=== PATIENT | male | born 1980 | race African-American/Black ===

== ENCOUNTER 2024-06-06 10:38 | Emergency (ER) | payer OTHER ==
[2024-06-06 10:51] VITALS: BP 131/82; PULSE 81; RESP 20; TEMP 98.4; BMI 26.6
[2024-06-06] MEDS ORDERED: ACETAMINOPHEN INJECTION 100 ML ONE (12:53)
[2024-06-06] MEDS: SODIUM CHLORIDE 1,000 ML IV STA (12:55)
[2024-06-06] MEDS: METOCLOPRAMIDE HCL INJECTION 10 MG/2 ML VIAL IVPUSH ONE (13:10)
[2024-06-06] MEDS ORDERED: LIDOCAINE 4% PATCH TP ONE (13:13)
[2024-06-06] MEDS: LIDOCAINE 4% PATCH TP ONE (13:19)
[2024-06-06] MEDS: ACETAMINOPHEN 1000 MG/100 ML BAG IVPB ONE (13:19)
[2024-06-06 14:42] LABS: HIV INTERPRETATION NEGATIVE (NEGATIVE)
[2024-06-06] MEDS ORDERED: KETOROLAC TROMETHAMINE 30 MG/1 ML VIAL ONE (15:15)
[2024-06-06] MEDS: KETOROLAC TROMETHAMINE 30 MG/1 ML VIAL IVPUSH ONE (15:19)
[2024-06-06] MEDS ORDERED: LIDOCAINE PATCH REMOVAL MC SCH (22:00)
== END 2024-06-06 15:36 | disposition home or self-care (01) ==
LOC: JER 10:38
PROC: 3E033NZ Introduction of Analgesics, Hypnotics, Sedatives into Peripheral Vein, Percutaneous Approach (ICD-10-PCS; principal; 2024-06-06)
PROC: 3E0333Z Introduction of Anti-inflammatory into Peripheral Vein, Percutaneous Approach (ICD-10-PCS; 2024-06-06)
PROC: 3E0337Z Introduction of Electrolytic and Water Balance Substance into Peripheral Vein, Percutaneous Approach (ICD-10-PCS; 2024-06-06)
DX: M54.12 Radiculopathy, cervical region (principal); M54.2 Cervicalgia
CPT/HCPCS: 36415; 70450-TC; 72125-TC; 86803; 87389; 99284-25; J0131